=== PATIENT | female | born 1995 | race Caucasian/White ===

== ENCOUNTER 2017-05-03 22:41 | Emergency (ER) | payer SELFPAY ==
[~2017-05-03] VITALS: Ht 154.9 cm; Wt 57.2 kg
[~2017-05-03 22:41] MED LIST: CEPHALEXIN500 MG OR; CIPROFLOXACN500 MG PO; KEFLEX500 MG OR; LOESTRIN 24 PO; LORTAB 5/3255 MG PO; MACROBID100 MG PO; METRONIDAZOL500 MG PO; MOTRIN800 MG/TAB PO; NAPROSYN500 MG PO; NO HOME MEDS; NORETHIN ACE5 MG PO; OCELLA1 TAB PO; ONDANSETRON4 MG PO; ORTHO EVRA TD; RANITIDINE150 M1 PO; ULTRAM50 M1 PO
[2017-05-03 22:46] VITALS: BP 130/90
== END 2017-05-03 22:52 | disposition left against medical advice (07) | DRG 951 ==
LOC: ED 22:41 → LWOBS 22:52
DX: Z91.19 Patient's noncompliance with other medical treatment and regimen (principal)

== ENCOUNTER 2018-12-29 10:52 | Emergency (ER) | payer BC ==
[~2018-12-29] VITALS: Ht 154.9 cm; Wt 56.8 kg
[2018-12-29 11:44] LABS: HEMATOCRIT 41.3 % (37.0-47.0); HEMOGLOBIN 13.9 g/dl (12.0-16.0); IMMATURE GRANULOCYTES 0.5 % (0.0-5.0); MEAN CELL VOLUME 83.6 fL CALC (80.0-100.0); MEAN CORPUSCULAR HGB 28.1 pG CALC (26.0-32.0); MEAN CORPUSCULAR HGB CONC 33.7 g/L CALC (32.0-36.0); NEUT# 5.24 thou/uL (2.00-7.15); RED BLOOD COUNT 4.94 mill/uL (4.20-5.60); RED CELL DISTRI WIDTH 12.3 % (11.5-15.5)
[2018-12-29 11:47] LABS: URINE BILIRUBIN - DIPSTICK NEGATIVE (NEGATIVE); URINE BLOOD DIPSTICK TRACE-INTACT (NEGATIVE); URINE COLOR YELLOW; URINE GLUCOSE - DIPSTICK NEGATIVE (NEGATIVE); URINE KETONE NEGATIVE (NEGATIVE); URINE LEUK ESTERASE NEGATIVE (NEGATIVE); URINE NITRITE - DIPSTICK NEGATIVE (Negative); URINE PROTEIN - DIPSTICK NEGATIVE (NEG-TRACE); URINE SPECIFIC GRAVITY 1.025; URINE UROBILINOGEN - DIPSTICK 0.2 E.U./dL (0.2)
[2018-12-29 12:02] LABS: ALBUMIN 4.9 g/dL (3.2-5.0); ALKALINE PHOSPHATASE 83 u/l (38-126); ANION GAP 14 (6-22 (CALC)); BUN 10 mg/dL (7-17); BUN/CREATININE RATIO 17 (12-20 (CALC)); CARBON DIOXIDE 24 mmol/l (22-30); CHLORIDE 105 mmol/l (95-108); CREATININE 0.6 mg/dL (0.5-1.0); GFR > 60 ML/MIN (>=60 (CALC)); GFR FOR AFR.AMER. > 60 ML/MIN (>=60 (CALC)); LIPASE 75 u/l (23-300); POTASSIUM 4.3 mmol/l (3.5-5.1); SGOT/AST 20 u/l (14-36); SODIUM 139 mmol/l (137-146); TOTAL PROTEIN 8.1 g/dL (6.3-8.2)
[2018-12-29 12:03] LABS: BILIRUBIN, TOTAL 0.7 mg/dL (0.0-1.4)
[2018-12-29] MEDS ORDERED: ONDANSETRON4 MG PO (13:35)
[2018-12-29 13:54] VITALS: BP 144/85
== END 2018-12-29 14:00 | disposition home or self-care (01) | DRG 392 ==
LOC: ED 10:52
PROVIDERS: Family Medicine
DX: R10.31 Right lower quadrant pain (principal); R10.32 Left lower quadrant pain

== ENCOUNTER 2020-02-28 11:39 | Emergency (ER) | payer BC ==
[~2020-02-28] VITALS: Ht 154.9 cm; Wt 62.0 kg
[2020-02-28] MEDS ORDERED: ZITHROMAX250 MG PO (13:44)
[2020-02-28 13:59] VITALS: BP 117/71
--- NOTE | 2020-03-01 15:03 | NUR ---
Patient called for Covid results. Advised patient of negative results. Advised patient to continue Covid prevention. Advised patient to return to Ed with difficulty breathing or other urgent needs. Patient verbalized understand.
== END 2020-02-28 13:59 | disposition home or self-care (01) | DRG 153 ==
LOC: ED 11:39
DX: J06.9 Acute upper respiratory infection, unspecified (principal); Z20.828 Contact with and (suspected) exposure to other viral communicable diseases

== ENCOUNTER 2020-04-16 10:15 | Emergency (ER) | payer BC ==
[~2020-04-16] VITALS: Ht 154.9 cm; Wt 60.4 kg
[~2020-04-16 10:15] MED LIST changes: +ZITHROMAX250 MG PO
[2020-04-16 11:09] LABS: HEMATOCRIT 44.7 % (37.0-47.0); HEMOGLOBIN 14.4 g/dl (12.0-16.0); IMMATURE GRANULOCYTES 0.3 % (0.0-5.0); MEAN CELL VOLUME 86.1 fL CALC (80.0-100.0); MEAN CORPUSCULAR HGB 27.7 pG CALC (26.0-32.0); MEAN CORPUSCULAR HGB CONC 32.2 g/dL CAL (32.0-36.0); NEUT# 7.95 thou/uL (2.00-7.15); RED BLOOD COUNT 5.19 mill/uL (4.20-5.60); RED CELL DISTRI WIDTH 12.2 % (11.5-15.5)
[2020-04-16 11:11] LABS: URINE BILIRUBIN - DIPSTICK NEGATIVE (NEGATIVE); URINE BLOOD DIPSTICK TRACE-INTACT (NEGATIVE); URINE COLOR YELLOW; URINE GLUCOSE - DIPSTICK NEGATIVE (NEGATIVE); URINE KETONE NEGATIVE (NEGATIVE); URINE LEUK ESTERASE NEGATIVE (NEGATIVE); URINE NITRITE - DIPSTICK NEGATIVE (Negative); URINE PROTEIN - DIPSTICK NEGATIVE (NEG-TRACE); URINE SPECIFIC GRAVITY >=1.030; URINE UROBILINOGEN - DIPSTICK 0.2 E.U./dL (0.2)
[2020-04-16 11:43] LABS: ALBUMIN 5.2 g/dL (3.2-5.0); ALKALINE PHOSPHATASE 91 u/l (38-126); ANION GAP 18 (6-22 (CALC)); BILIRUBIN, TOTAL 0.7 mg/dL (0.0-1.4); BUN 10 mg/dL (7-17); BUN/CREATININE RATIO 17 (12-20 (CALC)); CARBON DIOXIDE 23 mmol/l (22-30); CHLORIDE 103 mmol/l (95-108); CREATININE 0.6 mg/dL (0.5-1.0); GFR > 60 ML/MIN (>=60 (CALC)); GFR FOR AFR.AMER. > 60 ML/MIN (>=60 (CALC)); LIPASE 75 u/l (23-300); POTASSIUM 4.3 mmol/l (3.5-5.1); SGOT/AST 27 u/l (14-36); SODIUM 140 mmol/l (137-146); TOTAL PROTEIN 8.9 g/dL (6.3-8.2)
[2020-04-16] MEDS ORDERED: ONDANSETRON4 MG PO (12:59)
[2020-04-16 13:10] VITALS: BP 128/88
== END 2020-04-16 13:10 | disposition home or self-care (01) | DRG 392 ==
LOC: ED 10:15
PROVIDERS: Family Medicine
DX: R10.32 Left lower quadrant pain (principal); R10.31 Right lower quadrant pain
CPT/HCPCS: Q9967

== ENCOUNTER 2020-06-07 22:19 | Emergency (ER) | payer SELFPAY ==
[~2020-06-07] VITALS: Ht 154.9 cm; Wt 59.1 kg
[2020-06-07 23:04] LABS: URINE BILIRUBIN - DIPSTICK NEGATIVE (NEGATIVE); URINE BLOOD DIPSTICK TRACE-INTACT (NEGATIVE); URINE COLOR YELLOW; URINE GLUCOSE - DIPSTICK NEGATIVE (NEGATIVE); URINE KETONE NEGATIVE (NEGATIVE); URINE LEUK ESTERASE NEGATIVE (NEGATIVE); URINE NITRITE - DIPSTICK NEGATIVE (Negative); URINE PROTEIN - DIPSTICK NEGATIVE (NEG-TRACE); URINE UROBILINOGEN - DIPSTICK 0.2 E.U./dL (0.2)
[2020-06-07 23:21] LABS: HEMATOCRIT 42.3 % (37.0-47.0); HEMOGLOBIN 13.9 g/dl (12.0-16.0); IMMATURE GRANULOCYTES 0.2 % (0.0-5.0); MEAN CELL VOLUME 83.9 fL CALC (80.0-100.0); MEAN CORPUSCULAR HGB 27.6 pG CALC (26.0-32.0); MEAN CORPUSCULAR HGB CONC 32.9 g/dL CAL (32.0-36.0); NEUT# 7.45 thou/uL (2.00-7.15); RED BLOOD COUNT 5.04 mill/uL (4.20-5.60); RED CELL DISTRI WIDTH 12.2 % (11.5-15.5)
[2020-06-08 00:39] LABS: ALKALINE PHOSPHATASE 85 u/l (38-126); ANION GAP 18 (6-22 (CALC)); BILIRUBIN, TOTAL 0.6 mg/dL (0.0-1.4); BUN 10 mg/dL (7-17); BUN/CREATININE RATIO 13 (12-20 (CALC)); CARBON DIOXIDE 27 mmol/l (22-30); CHLORIDE 101 mmol/l (95-108); CREATININE 0.7 mg/dL (0.5-1.0); GFR > 60 ML/MIN (>=60 (CALC)); GFR FOR AFR.AMER. > 60 ML/MIN (>=60 (CALC)); POTASSIUM 3.5 mmol/l (3.5-5.1); SGOT/AST 29 u/l (14-36); SODIUM 142 mmol/l (137-146); TOTAL PROTEIN 8.7 g/dL (6.3-8.2)
[2020-06-08 01:12] VITALS: BP 111/72
[2020-06-08 01:48] LABS: MYOGLOBIN 19 ng/mL (0 - 62)
== END 2020-06-08 02:04 | disposition home or self-care (01) | DRG 312 ==
LOC: ED 22:19
PROVIDERS: Family Medicine
DX: R55 Syncope and collapse (principal)

== ENCOUNTER 2021-08-10 10:55 | Emergency (ER) | payer SELFPAY ==
[2021-08-10] VITALS (10 sets, daily range): BP systolic 112–143; BP diastolic 70–92
[~2021-08-10] VITALS: Ht 154.9 cm; Wt 65.0 kg
[2021-08-10 12:14] LABS: HEMATOCRIT 42.6 % (37.0-47.0); HEMOGLOBIN 14.1 g/dl (12.0-16.0); IMMATURE GRANULOCYTES 0.2 % (0.0-5.0); MEAN CELL VOLUME 86.1 fL CALC (80.0-100.0); MEAN CORPUSCULAR HGB 28.5 pG CALC (26.0-32.0); MEAN CORPUSCULAR HGB CONC 33.1 g/dL CAL (32.0-36.0); NEUT# 7.01 thou/uL (2.00-7.15); RED BLOOD COUNT 4.95 mill/uL (4.20-5.60); RED CELL DISTRI WIDTH 12.4 % (11.5-15.5)
[2021-08-10 12:21] LABS: ALBUMIN 4.5 g/dL (3.2-5.0); ALKALINE PHOSPHATASE 82 u/l (38-126); AMYLASE 87 u/l (30-110); ANION GAP 13 (6-22 (CALC)); BILIRUBIN, TOTAL 0.4 mg/dL (0.0-1.4); BUN 11 mg/dL (7-17); BUN/CREATININE RATIO 17 (12-20 (CALC)); CARBON DIOXIDE 24 mmol/l (22-30); CHLORIDE 105 mmol/l (95-108); CREATININE 0.6 mg/dL (0.5-1.0); GFR > 60 ML/MIN (>=60 (CALC)); GFR FOR AFR.AMER. > 60 ML/MIN (>=60 (CALC)); LIPASE 105 u/l (23-300); SGOT/AST 21 u/l (14-36); SODIUM 138 mmol/l (137-146); TOTAL PROTEIN 7.5 g/dL (6.3-8.2)
[2021-08-10 12:32] LABS: POTASSIUM 4.4 mmol/l (3.5-5.1)
[2021-08-10 14:14] LABS: URINE BILIRUBIN - DIPSTICK NEGATIVE (NEGATIVE); URINE BLOOD DIPSTICK SMALL (NEGATIVE); URINE COLOR YELLOW; URINE GLUCOSE - DIPSTICK NEGATIVE (NEGATIVE); URINE KETONE NEGATIVE (NEGATIVE); URINE LEUK ESTERASE NEGATIVE (NEGATIVE); URINE NITRITE - DIPSTICK NEGATIVE (Negative); URINE PH 5.5 (4.5-8.0); URINE PROTEIN - DIPSTICK NEGATIVE (NEG-TRACE); URINE SPECIFIC GRAVITY >=1.030; URINE UROBILINOGEN - DIPSTICK 0.2 E.U./dL (0.2)
[2021-08-10] MEDS ORDERED: ULTRAM50 MG PO (14:36)
[2021-08-10] MEDS ORDERED: KEFLEX500 MG PO (14:36)
== END 2021-08-10 14:55 | disposition home or self-care (01) | DRG 552 ==
LOC: ED 10:55
DX: M54.50 Low back pain, unspecified (principal); R31.29 Other microscopic hematuria; Z87.19 Personal history of other diseases of the digestive system; Z87.442 Personal history of urinary calculi

== ENCOUNTER 2021-12-05 12:38 | Emergency (ER) | payer SELFPAY ==
[2021-12-05] VITALS (10 sets, daily range): BP systolic 90–142; BP diastolic 55–85
[~2021-12-05] VITALS: Ht 154.9 cm; Wt 60.9 kg
[~2021-12-05 12:38] MED LIST changes: +KEFLEX500 MG PO; +ULTRAM50 MG PO
[2021-12-05 13:10] LABS: URINE BILIRUBIN - DIPSTICK NEGATIVE (NEGATIVE); URINE BLOOD DIPSTICK TRACE-INTACT (NEGATIVE); URINE COLOR YELLOW; URINE GLUCOSE - DIPSTICK NEGATIVE (NEGATIVE); URINE KETONE NEGATIVE (NEGATIVE); URINE LEUK ESTERASE NEGATIVE (NEGATIVE); URINE PH 6.5 (4.5-8.0); URINE PROTEIN - DIPSTICK NEGATIVE (NEG-TRACE); URINE UROBILINOGEN - DIPSTICK 0.2 E.U./dL (0.2)
[2021-12-05 13:13] LABS: URINE NITRITE - DIPSTICK NEGATIVE (Negative)
[2021-12-05 14:08] LABS: HEMATOCRIT 41.1 % (37.0-47.0); HEMOGLOBIN 13.7 g/dl (12.0-16.0); IMMATURE GRANULOCYTES 0.1 % (0.0-5.0); MEAN CORPUSCULAR HGB 28.7 pG CALC (26.0-32.0); MEAN CORPUSCULAR HGB CONC 33.3 g/dL CAL (32.0-36.0); NEUT# 3.92 thou/uL (2.00-7.15); RED BLOOD COUNT 4.78 mill/uL (4.20-5.60); RED CELL DISTRI WIDTH 12.2 % (11.5-15.5)
[2021-12-05 14:19] LABS: ALBUMIN 4.6 g/dL (3.2-5.0); ALKALINE PHOSPHATASE 74 u/l (38-126); ANION GAP 12 (6-22 (CALC)); BUN 8 mg/dL (7-17); BUN/CREATININE RATIO 13 (12-20 (CALC)); CARBON DIOXIDE 26 mmol/l (22-30); CHLORIDE 104 mmol/l (95-108); CREATININE 0.7 mg/dL (0.5-1.0); GFR FOR AFR.AMER. > 60 ML/MIN (>=60 (CALC)); GFR OTHER RACES > 60 ML/MIN (>=60 (CALC)); LIPASE 63 u/l (23-300); POTASSIUM 3.9 mmol/l (3.5-5.1); SGOT/AST 24 u/l (14-36); SODIUM 138 mmol/l (137-146); TOTAL PROTEIN 7.8 g/dL (6.3-8.2)
[2021-12-05 14:22] LABS: BILIRUBIN, TOTAL 0.6 mg/dL (0.0-1.4)
[2021-12-05] MEDS ORDERED: TRAMADOL HCL50 MG PO (16:59)
== END 2021-12-05 17:39 | disposition home or self-care (01) | DRG 761 ==
LOC: ED 12:38
PROVIDERS: Nurse Practitioner
DX: N83.201 Unspecified ovarian cyst, right side (principal); Z87.442 Personal history of urinary calculi
CPT/HCPCS: Q9967

== ENCOUNTER 2022-03-07 07:47 | Emergency (ER) | payer SELFPAY ==
[~2022-03-07] VITALS: Ht 154.9 cm; Wt 75.0 kg
[2022-03-07] VITALS (9 sets, daily range): BP systolic 110–153; BP diastolic 67–96
[~2022-03-07 07:47] MED LIST changes: +TRAMADOL HCL50 MG PO
[2022-03-07 08:23] LABS: HEMATOCRIT 41.8 % (37.0-47.0); IMMATURE GRANULOCYTES 0.1 % (0.0-5.0); MEAN CELL VOLUME 84.8 fL CALC (80.0-100.0); MEAN CORPUSCULAR HGB 28.4 pG CALC (26.0-32.0); MEAN CORPUSCULAR HGB CONC 33.5 g/dL CAL (32.0-36.0); NEUT# 3.93 thou/uL (2.00-7.15); RED BLOOD COUNT 4.93 mill/uL (4.20-5.60); RED CELL DISTRI WIDTH 12.3 % (11.5-15.5)
[2022-03-07 08:30] LABS: ALBUMIN 4.6 g/dL (3.2-5.0); ALKALINE PHOSPHATASE 68 u/l (38-126); ANION GAP 15 (6-22 (CALC)); BUN 9 mg/dL (7-17); BUN/CREATININE RATIO 14 (12-20 (CALC)); CARBON DIOXIDE 21 mmol/l (22-30); CHLORIDE 105 mmol/l (95-108); CREATININE 0.6 mg/dL (0.5-1.0); GFR FOR AFR.AMER. > 60 ML/MIN (>=60 (CALC)); GFR OTHER RACES > 60 ML/MIN (>=60 (CALC)); POTASSIUM 3.8 mmol/l (3.5-5.1); SGOT/AST 32 u/l (14-36); SODIUM 138 mmol/l (137-146); TOTAL PROTEIN 7.8 g/dL (6.3-8.2)
[2022-03-07 08:38] LABS: BILIRUBIN, TOTAL 0.9 mg/dL (0.0-1.4)
[2022-03-07] MEDS ORDERED: MOTRIN800 MG PO (09:39)
[2022-03-07] MEDS ORDERED: ZOFRAN4 MG/TAB PO (09:39)
== END 2022-03-07 09:51 | disposition home or self-care (01) | DRG 103 ==
LOC: ED 07:47
PROVIDERS: Emergency Medicine
DX: G43.909 Migraine, unspecified, not intractable, without status migrainosus (principal); R00.0 Tachycardia, unspecified

== ENCOUNTER 2023-01-24 08:22 | Emergency (ER) | payer SELFPAY ==
[~2023-01-24] VITALS: Ht 154.9 cm; Wt 66.6 kg
[~2023-01-24 08:22] MED LIST changes: +MOTRIN800 MG PO; +ZOFRAN4 MG/TAB PO
[2023-01-24 08:43] VITALS: BP 122/80
[2023-01-24 09:00] VITALS: BP 116/86
[2023-01-24 09:04] LABS: BASO% 0.3 % (0-3); EOS% 0.8 % (0-8); HEMATOCRIT 43.1 % (37.0-47.0); HEMOGLOBIN 14.5 g/dl (12.0-16.0); IMMATURE GRANULOCYTES 0.1 % (0.0-5.0); LYMPH% 28.1 % (15-41); MEAN CELL VOLUME 85.9 fL CALC (80.0-100.0); MEAN CORPUSCULAR HGB 28.9 pG CALC (26.0-32.0); MEAN CORPUSCULAR HGB CONC 33.6 g/dL CAL (32.0-36.0); MONO% 7.1 % (2-13); NEUT# 5.01 thou/uL (2.00-7.15); NEUT% 63.6 % (42-76); RED BLOOD COUNT 5.02 mill/uL (4.20-5.60)
[2023-01-24 09:07] LABS: URINE BLOOD DIPSTICK Trace-intact (NEGATIVE); URINE GLUCOSE - DIPSTICK Negative (NEGATIVE); URINE KETONE Trace mg/dL (NEGATIVE); URINE LEUK ESTERASE Negative (NEGATIVE); URINE NITRITE - DIPSTICK Negative (Negative); URINE PROTEIN - DIPSTICK 30 mg/dL (NEG-TRACE); URINE SPECIFIC GRAVITY 1.025; URINE UROBILINOGEN - DIPSTICK 0.2 E.U./dL (0.2)
[2023-01-24 09:09] LABS: URINE COLOR Yellow
[2023-01-24 09:11] LABS: URINE BACTERIA MANY hpf; URINE MUCUS MODERATE hpf (NONE-FEW); URINE RBC 0-2 RBC/hpf (0-5); URINE SQUAMOUS EPITHELIAL CELL MODERATE EPI/hpf (0-FEW); URINE WBC 0-2 WBC/hpf (0-5)
[2023-01-24 09:30] VITALS: BP 108/72
[2023-01-24 09:41] LABS: ALBUMIN 4.7 g/dL (3.2-5.0); ALKALINE PHOSPHATASE 75 u/l (38-126); ANION GAP 14 (6-22 (CALC)); BUN 13 mg/dL (7-17); BUN/CREATININE RATIO 18 (12-20 (CALC)); CARBON DIOXIDE 21 mmol/l (22-30); CHLORIDE 105 mmol/l (95-108); CREATININE 0.7 mg/dL (0.5-1.0); GFR FOR AFR.AMER. > 60 ML/MIN (>=60 (CALC)); GFR OTHER RACES > 60 ML/MIN (>=60 (CALC)); LIPASE 56 u/l (23-300); POTASSIUM 3.7 mmol/l (3.5-5.1); SGOT/AST 30 u/l (14-36); SODIUM 137 mmol/l (137-146); TOTAL PROTEIN 8.1 g/dL (6.3-8.2)
[2023-01-24 09:57] LABS: BETA-HCG, QUANT(RESULT NUMBER) <2 mIU/mL
[2023-01-24 10:00] VITALS: BP 102/62
[2023-01-24] MEDS ORDERED: ONDANSETRON ODT8 MG PO (11:03)
[2023-01-24 11:20] VITALS: BP 100/73
[2023-01-24 11:22] VITALS: BP 100/73
== END 2023-01-24 11:30 | disposition home or self-care (01) | DRG 392 ==
LOC: ED 08:22
PROVIDERS: Emergency Medicine
DX: A08.4 Viral intestinal infection, unspecified (principal); Z87.19 Personal history of other diseases of the digestive system; Z87.442 Personal history of urinary calculi
CPT/HCPCS: Q9967

== ENCOUNTER 2023-01-25 15:16 | Observation (INO) | payer SELFPAY ==
[2023-01-25] VITALS (13 sets, daily range): BP systolic 108–143; BP diastolic 61–100
[~2023-01-25] VITALS: Ht 154.9 cm; Wt 58.0 kg
[~2023-01-25 15:16] MED LIST changes: +ONDANSETRON ODT8 MG PO
[2023-01-25 15:43] LABS: BASO% 0.2 % (0-3); HEMATOCRIT 42.8 % (37.0-47.0); HEMOGLOBIN 14.6 g/dl (12.0-16.0); IMMATURE GRANULOCYTES 0.2 % (0.0-5.0); LYMPH% 13.5 % (15-41); MEAN CELL VOLUME 84.8 fL CALC (80.0-100.0); MEAN CORPUSCULAR HGB 28.9 pG CALC (26.0-32.0); MEAN CORPUSCULAR HGB CONC 34.1 g/dL CAL (32.0-36.0); MONO% 4.5 % (2-13); NEUT# 10.15 thou/uL (2.00-7.15); NEUT% 81.6 % (42-76); RED BLOOD COUNT 5.05 mill/uL (4.20-5.60)
[2023-01-25 15:55] LABS: ALBUMIN 4.9 g/dL (3.2-5.0); ALKALINE PHOSPHATASE 72 u/l (38-126); ANION GAP 18 (6-22 (CALC)); BILIRUBIN, TOTAL 0.8 mg/dL (0.02-1.3); BUN 8 mg/dL (7-17); BUN/CREATININE RATIO 12 (12-20 (CALC)); CARBON DIOXIDE 22 mmol/l (22-30); CHLORIDE 103 mmol/l (95-108); CREATININE 0.7 mg/dL (0.5-1.0); GFR FOR AFR.AMER. > 60 ML/MIN (>=60 (CALC)); GFR OTHER RACES > 60 ML/MIN (>=60 (CALC)); POTASSIUM 3.6 mmol/l (3.5-5.1); SGOT/AST 33 u/l (14-36); SODIUM 140 mmol/l (137-146); TOTAL PROTEIN 8.6 g/dL (6.3-8.2)
--- NOTE | 2023-01-25 15:56 | NUR ---
PT WITH HOB ELEVATED, INTERNAL COMMUNICATIONS MANAGER SHOWS SINUS TACH, IVF INFUSING # 20 LEFT AC, SITE WITHOUT REDNESS/SWELLING. AIRWAY PATENT, RESP EVEN AND NON LABORED.
--- NOTE | 2023-01-25 18:33 | NUR ---
PT STATES " FEELING BETTER" SPOUSE AT BEDSIDE. NO ACUTE DISTRESS NOTED.
--- NOTE | 2023-01-25 22:28 | NUR ---
PATIENT ADMITTED FROM ER [facility] VIA WHEELCHAIR WITH ER STAFF IN ATTENDANCE. PATIENT IS ABLE TO TRANSFER TO THE BED ON HER OWN WITH STEADY GAIT. PATIENT IS AWAKE ALERT AND ORIENTEDX3. ADMITTED FOR CHOLECYSTITIS. PATIENT IV SITE TO LAC INTACT WITH GOOD BLOOD RETURN. IVF NS HUNG AND INFUSING ORDERED AT 125CC/HR. PATIENT IS NPO FOR POSSIBLE OR IN AM. PATIENT STATES THAT HE PAIN LEVEL AT THIS TIME IS 3 AFTER RECIEVING MORPHINE IN TH ER. NO NAUSEA AT THIS TIME. PATIENT STATES THAT HE LAST BM WAS THIS MORNING AND IT WAS WATERY STOOL. DENIES ANY DIFFICULTY WITH URINATION. LUNGS ARE CLEAR. ABD IS SOFT WITH ACTIVE BS. NO PERIPHERAL EDEMA AND PULSES ARE PALPABLE. PATIENT ORIENTED TO ROOM AND SURROUNDINGS. INSTRUCTED ON USE OF NURSE CALL LIGHT AND TV REMOTE. INSTRUCTED NPO FOR POSSIBLE OR IN AM. SAFETY PRECAUTIONS REINFORCED. CALL LIGHT IN REACH. WILL CONT TO MONITOR.
[2023-01-26] VITALS (11 sets, daily range): BP systolic 100–148; BP diastolic 42–78
--- NOTE | 2023-01-26 02:24 | NUR ---
PATIENT UP TO THE BR TO VOID. PATIENT DID TAKE PRE-OP SHOWER USING ANTISEPTIC SCRUB. RESTING IN BED AT THIS TIME. IVF PATENT AND INFUSING VIA LAC SITE AT 125CC/HR. ZOSYN HUNG ORDERED AND TORADOL GIVEN SCHEDULED. REMAINS NPO FOR POSS OR ION THE MORNING. CALL LIGHT IN REACH. WILL CONT TO MONITOR.
--- NOTE | 2023-01-26 03:52 | NUR ---
PATIENT RESTING IN BED-C/O SEVERE ABD PAIN 9/10 ON PAIN SCALE. MEDICATED WITH DILAUDID 1MG IVP ORDERED. MREMAINS NPO FOR POSS SURGERY THIS MORNING. IVF NS PATENT AND INFUSING VIA LAC SITE AT 125CC/HR. CALL LIGHTIN REACH. WILL CONT TO MONITOR.
--- NOTE | 2023-01-26 06:30 | NUR ---
PATIENT WITH GOOD RELIEF FROM DILAUDID GIVEN EARLIER. MIN ASSIST TO THE BR TO VOID QS CLEAR YELLOW URINE. MIN ASSIST BACK TO THE BED. IVF PATENT AND INFUSING AT 125CC/HR. ZOSYN INFUSING ORDERED. CONSENT FOR POSSIBLE OR SIGNED. REMAINS NPO AT THIS TIME. CALL LIGHT IN REACH. WILL CONT TO MONITOR.
--- NOTE | 2023-01-26 08:00 | NUR ---
PT IN BED WITH HOB UP, PT IS ALERT AND ORIENTED X 3. PT C/O PAIN AT 2/10 ON PAIN SCALE AT THIS TIME. PT HAS IV SITE # 20 TO LAC CLEAN AND INTACT WITH NS @ 125 ML/HR INFUSING. LUNGS CLEAR THROUGHOUT. BS HYPOACTIVE, UPPER ABD TENDER TO TOUCH. PT AMBULATES TO BATHROOM FOR TOILETING NEEDS. PT NPO SINCE MIDNIGHT FOR POSSIBLE LAP JESSICA TODAY. PT HAS CALL LIGHT WITHIN REACH AND ALL SAFETY MEASURES IN PLACE.
--- NOTE | 2023-01-26 09:05 | NUR ---
PT C/O NAUSEA ABD ABD PAIN AT 8/10 ON PAIN SCALE. PT MEDICATED WITH PRN MEDICATIONS. PT HAS CALL LIGHT WITHIN REACH AND ALL SAFETY MEASURES IN PLACE.
--- NOTE | 2023-01-26 09:30 | NUR ---
PT BEING TRANSPORTED TO OR FOR LAP JESSICA, CONSENTS SIGNED. FAMILY MEMBER IN ROOM.
[2023-01-26] MEDS ORDERED: PERCOCET 5/325M1 TAB PO (10:57)
[2023-01-26] MEDS ORDERED: ONDANSETRON4 MG PO (10:58)
--- NOTE | 2023-01-26 12:05 | NUR ---
PT IN OR.
--- NOTE | 2023-01-26 12:25 | NUR ---
PT BACK TO MED SURG FROM OR. PT IS GROGGY BUT ORIENTED X3, PT C/O PAIN AT 4/10 ON PAIN SCALE, SCHEDULED TORADOL GIVEN ORDERED. PT ABD SOFT WITH 4 INCISION SITE CLEAN WITH DERMABOND. SCD'S APPLIED TO BLE. PT HAS LR INFUSING @ 100 ML/HR. PT HAS CALL LIGHT WITHIN REACH AND ALL SAFETY MEASURES IN PLACE AT THIS TIME.
--- NOTE | 2023-01-26 12:28 | NUR ---
PT VSS AND OR NURSE REPORTS PT HAD 300 ML URINE OUT IN OR.
--- NOTE | 2023-01-26 17:24 | NUR ---
PT UP TO BATHROOM AND AMBULATING UP AND DOWN CH. PT HAS MODERATE AMOUNT OF PAIN AT 4/10 ON PAIN SCALE. PT HAS BEEN DRINKING AND EATING WELL. PT HAS CALL LIGHT WITHIN REACH.
--- NOTE | 2023-01-26 17:45 | NUR ---
Discharge instructions given. Patient verbalizes understanding of same. Discharged in stable condition via Wheelchair to Home with staff. All belongings sent with pt.
[2023-01-27] MEDS ORDERED: PERCOCET 10/31 COMBO PO (05:23)
== END 2023-01-26 17:44 | disposition home or self-care (01) | DRG 419 ==
LOC: ED 15:16 → ED-I 18:55 → ED 19:06 → MS2 19:07
PROVIDERS: Family Medicine; ADMIT Surgery; ATTEND Surgery
PROC: 0FT44ZZ Resection of Gallbladder, Percutaneous Endoscopic Approach (ICD-10-PCS; principal; 2023-01-26)
DX: K81.0 Acute cholecystitis (principal); K81.1 Chronic cholecystitis; F41.9 Anxiety disorder, unspecified; F32.A Depression, unspecified; Z87.442 Personal history of urinary calculi; Z87.19 Personal history of other diseases of the digestive system; Z20.822 Contact with and (suspected) exposure to COVID-19
CPT/HCPCS: G0378; J0131; J1100; J2710; Q9967

== ENCOUNTER 2023-01-27 02:13 | Emergency (ER) | payer SELFPAY ==
[~2023-01-27] VITALS: Ht 154.9 cm; Wt 57.0 kg
[~2023-01-27 02:13] MED LIST changes: +PERCOCET 5/325M1 TAB PO
[2023-01-27 04:57] LABS: ALBUMIN 4.5 g/dL (3.2-5.0); ALKALINE PHOSPHATASE 67 u/l (38-126); AMYLASE 55 u/l (30-110); ANION GAP 16 (6-22 (CALC)); BILIRUBIN, TOTAL 0.8 mg/dL (0.02-1.3); BUN 8 mg/dL (7-17); BUN/CREATININE RATIO 10 (12-20 (CALC)); CARBON DIOXIDE 25 mmol/l (22-30); CHLORIDE 101 mmol/l (95-108); CREATININE 0.8 mg/dL (0.5-1.0); GFR FOR AFR.AMER. > 60 ML/MIN (>=60 (CALC)); GFR OTHER RACES > 60 ML/MIN (>=60 (CALC)); LIPASE 41 u/l (23-300); POTASSIUM 4.2 mmol/l (3.5-5.1); SODIUM 137 mmol/l (137-146); TOTAL PROTEIN 7.6 g/dL (6.3-8.2)
[2023-01-27 04:58] LABS: BASO% 0.1 % (0-3); HEMATOCRIT 38.9 % (37.0-47.0); HEMOGLOBIN 13.3 g/dl (12.0-16.0); IMMATURE GRANULOCYTES 0.8 % (0.0-5.0); LYMPH% 9.9 % (15-41); MEAN CELL VOLUME 84.7 fL CALC (80.0-100.0); MEAN CORPUSCULAR HGB CONC 34.2 g/dL CAL (32.0-36.0); MONO% 7.6 % (2-13); NEUT# 10.78 thou/uL (2.00-7.15); NEUT% 81.6 % (42-76); RED BLOOD COUNT 4.59 mill/uL (4.20-5.60)
[2023-01-27 05:05] LABS: SGOT/AST 58 u/l (14-36)
[2023-01-27 05:10] LABS: URINE BILIRUBIN - DIPSTICK Negative (NEGATIVE); URINE BLOOD DIPSTICK Large (NEGATIVE); URINE COLOR Pink; URINE GLUCOSE - DIPSTICK Negative (NEGATIVE); URINE KETONE 15 mg/dL (NEGATIVE); URINE LEUK ESTERASE Trace (NEGATIVE); URINE NITRITE - DIPSTICK Negative (Negative); URINE PH 7.5 (4.5-8.0); URINE PROTEIN - DIPSTICK Negative (NEG-TRACE); URINE SPECIFIC GRAVITY 1.015; URINE UROBILINOGEN - DIPSTICK 0.2 E.U./dL (0.2)
[2023-01-27 05:12] LABS: URINE EPITHELIAL CELLS FEW EPI/hpf (0-FEW); URINE RBC >100 RBC/hpf (0-5)
[2023-01-27 05:13] LABS: URINE BACTERIA FEW hpf
[2023-01-27] MEDS ORDERED: PERCOCET 10/31 COMBO PO (05:23)
[2023-01-27 05:58] VITALS: BP 128/78
== END 2023-01-27 05:58 | disposition home or self-care (01) | DRG 948 ==
LOC: ED 02:13
PROVIDERS: Emergency Medicine
DX: G89.18 Other acute postprocedural pain (principal); R10.33 Periumbilical pain; F32.A Depression, unspecified; F41.9 Anxiety disorder, unspecified; Z87.442 Personal history of urinary calculi; Z90.49 Acquired absence of other specified parts of digestive tract
CPT/HCPCS: Q9967

== ENCOUNTER 2023-01-28 18:19 | Emergency (ER) | payer SELFPAY ==
[~2023-01-28] VITALS: Ht 154.9 cm; Wt 57.0 kg
[~2023-01-28 18:19] MED LIST changes: +PERCOCET 10/31 COMBO PO
[2023-01-28 19:18] VITALS: BP 146/89
[2023-01-28 19:30] VITALS: BP 117/83
[2023-01-28 19:45] VITALS: BP 118/79
[2023-01-28 19:48] LABS: BASO% 0.2 % (0-3); EOS% 0.2 % (0-8); HEMATOCRIT 39.2 % (37.0-47.0); HEMOGLOBIN 13.3 g/dl (12.0-16.0); IMMATURE GRANULOCYTES 0.2 % (0.0-5.0); LYMPH% 12.9 % (15-41); MEAN CELL VOLUME 84.7 fL CALC (80.0-100.0); MEAN CORPUSCULAR HGB 28.7 pG CALC (26.0-32.0); MEAN CORPUSCULAR HGB CONC 33.9 g/dL CAL (32.0-36.0); MONO% 6.8 % (2-13); NEUT# 10.34 thou/uL (2.00-7.15); NEUT% 79.7 % (42-76); RED BLOOD COUNT 4.63 mill/uL (4.20-5.60); RED CELL DISTRI WIDTH 11.9 % (11.5-15.5)
[2023-01-28 19:53] LABS: URINE BLOOD DIPSTICK Moderate (NEGATIVE); URINE GLUCOSE - DIPSTICK Negative (NEGATIVE); URINE KETONE >=160 mg/dL (NEGATIVE); URINE LEUK ESTERASE Negative (NEGATIVE); URINE NITRITE - DIPSTICK Negative (Negative); URINE PROTEIN - DIPSTICK Negative (NEG-TRACE); URINE SPECIFIC GRAVITY 1.025; URINE UROBILINOGEN - DIPSTICK 0.2 E.U./dL (0.2)
[2023-01-28 19:54] LABS: URINE COLOR Yellow
[2023-01-28 20:01] VITALS: BP 148/94
[2023-01-28 20:04] LABS: ALBUMIN 4.4 g/dL (3.2-5.0); ANION GAP 13 (6-22 (CALC)); BILIRUBIN, TOTAL 1.1 mg/dL (0.02-1.3); BUN 9 mg/dL (7-17); BUN/CREATININE RATIO 12 (12-20 (CALC)); CARBON DIOXIDE 27 mmol/l (22-30); CHLORIDE 100 mmol/l (95-108); CREATININE 0.8 mg/dL (0.5-1.0); GFR FOR AFR.AMER. > 60 ML/MIN (>=60 (CALC)); GFR OTHER RACES > 60 ML/MIN (>=60 (CALC)); LIPASE 40 u/l (23-300); POTASSIUM 3.6 mmol/l (3.5-5.1); SODIUM 136 mmol/l (137-146); TOTAL PROTEIN 7.6 g/dL (6.3-8.2)
[2023-01-28 20:05] LABS: URINE SQUAMOUS EPITHELIAL CELL FEW EPI/hpf (0-FEW); URINE WBC 0-2 WBC/hpf (0-5)
[2023-01-28 20:06] LABS: ALKALINE PHOSPHATASE 116 u/l (38-126); SGOT/AST 500 u/l (14-36)
[2023-01-28 20:15] VITALS: BP 137/89
[2023-01-28 23:43] VITALS: BP 133/84
== END 2023-01-28 23:43 | disposition home or self-care (01) | DRG 392 ==
LOC: ED 18:19
PROVIDERS: Family Medicine
DX: R10.31 Right lower quadrant pain (principal); F41.9 Anxiety disorder, unspecified; F32.A Depression, unspecified; Z90.49 Acquired absence of other specified parts of digestive tract; Z87.442 Personal history of urinary calculi; Z20.822 Contact with and (suspected) exposure to COVID-19
CPT/HCPCS: Q9967

== ENCOUNTER 2023-02-03 12:11 | Emergency (ER) | payer SELFPAY ==
[~2023-02-03] VITALS: Ht 154.9 cm; Wt 57.6 kg
[2023-02-03 12:50] LABS: BASO% 0.3 % (0-3); EOS% 1.3 % (0-8); HEMATOCRIT 41.6 % (37.0-47.0); IMMATURE GRANULOCYTES 0.1 % (0.0-5.0); LYMPH% 23.8 % (15-41); MEAN CELL VOLUME 85.6 fL CALC (80.0-100.0); MEAN CORPUSCULAR HGB 28.8 pG CALC (26.0-32.0); MEAN CORPUSCULAR HGB CONC 33.7 g/dL CAL (32.0-36.0); MONO% 8.7 % (2-13); NEUT# 6.92 thou/uL (2.00-7.15); NEUT% 65.8 % (42-76); RED BLOOD COUNT 4.86 mill/uL (4.20-5.60); RED CELL DISTRI WIDTH 12.1 % (11.5-15.5)
[2023-02-03 13:11] LABS: ALBUMIN 4.6 g/dL (3.2-5.0); ALKALINE PHOSPHATASE 131 u/l (38-126); ANION GAP 16 (6-22 (CALC)); BUN 13 mg/dL (7-17); BUN/CREATININE RATIO 20 (12-20 (CALC)); CARBON DIOXIDE 26 mmol/l (22-30); CHLORIDE 100 mmol/l (95-108); CREATININE 0.6 mg/dL (0.5-1.0); GFR FOR AFR.AMER. > 60 ML/MIN (>=60 (CALC)); GFR OTHER RACES > 60 ML/MIN (>=60 (CALC)); POTASSIUM 3.7 mmol/l (3.5-5.1); SODIUM 138 mmol/l (137-146); TOTAL PROTEIN 8.5 g/dL (6.3-8.2)
[2023-02-03 13:34] LABS: BILIRUBIN, TOTAL 0.6 mg/dL (0.02-1.3); SGOT/AST 50 u/l (14-36)
[2023-02-03 14:40] LABS: URINE BILIRUBIN - DIPSTICK Negative (NEGATIVE); URINE BLOOD DIPSTICK Negative (NEGATIVE); URINE GLUCOSE - DIPSTICK Negative (NEGATIVE); URINE KETONE 15 mg/dL (NEGATIVE); URINE LEUK ESTERASE Negative (NEGATIVE); URINE NITRITE - DIPSTICK Negative (Negative); URINE PROTEIN - DIPSTICK Negative (NEG-TRACE); URINE UROBILINOGEN - DIPSTICK 0.2 E.U./dL (0.2)
[2023-02-03 14:41] LABS: URINE COLOR Yellow
[2023-02-03 18:05] VITALS: BP 105/70
== END 2023-02-03 18:09 | disposition home or self-care (01) | DRG 392 ==
LOC: ED 12:11
PROVIDERS: Family Medicine
DX: R10.9 Unspecified abdominal pain (principal); F32.A Depression, unspecified; F41.9 Anxiety disorder, unspecified; Z87.442 Personal history of urinary calculi; Z90.49 Acquired absence of other specified parts of digestive tract
CPT/HCPCS: A9537; Q9967

== ENCOUNTER 2023-02-06 12:30 | Emergency (ER) | payer SELFPAY ==
[~2023-02-06] VITALS: Ht 154.9 cm; Wt 57.6 kg
[2023-02-06] VITALS (7 sets, daily range): BP systolic 102–117; BP diastolic 58–77
[2023-02-06 13:01] LABS: BASO% 0.3 % (0-3); EOS% 0.8 % (0-8); HEMATOCRIT 41.7 % (37.0-47.0); HEMOGLOBIN 14.1 g/dl (12.0-16.0); IMMATURE GRANULOCYTES 0.1 % (0.0-5.0); LYMPH% 23.7 % (15-41); MEAN CELL VOLUME 85.6 fL CALC (80.0-100.0); MEAN CORPUSCULAR HGB CONC 33.8 g/dL CAL (32.0-36.0); MONO% 6.1 % (2-13); NEUT# 6.69 thou/uL (2.00-7.15); RED BLOOD COUNT 4.87 mill/uL (4.20-5.60); RED CELL DISTRI WIDTH 11.8 % (11.5-15.5)
[2023-02-06 13:19] LABS: ALBUMIN 4.7 g/dL (3.2-5.0); ALKALINE PHOSPHATASE 110 u/l (38-126); ANION GAP 15 (6-22 (CALC)); BILIRUBIN, TOTAL 0.7 mg/dL (0.02-1.3); BUN 11 mg/dL (7-17); BUN/CREATININE RATIO 15 (12-20 (CALC)); CARBON DIOXIDE 25 mmol/l (22-30); CHLORIDE 105 mmol/l (95-108); CREATININE 0.7 mg/dL (0.5-1.0); GFR FOR AFR.AMER. > 60 ML/MIN (>=60 (CALC)); GFR OTHER RACES > 60 ML/MIN (>=60 (CALC)); LIPASE 112 u/l (23-300); SGOT/AST 31 u/l (14-36); SODIUM 140 mmol/l (137-146); TOTAL PROTEIN 8.5 g/dL (6.3-8.2)
[2023-02-06 13:42] LABS: POTASSIUM 4.5 mmol/l (3.5-5.1)
== END 2023-02-06 14:10 | disposition home or self-care (01) | DRG 103 ==
LOC: ED 12:30
PROVIDERS: Family Medicine
DX: R51.9 Headache, unspecified (principal); F41.9 Anxiety disorder, unspecified; F32.A Depression, unspecified; Z90.49 Acquired absence of other specified parts of digestive tract; Z87.442 Personal history of urinary calculi; Z20.822 Contact with and (suspected) exposure to COVID-19

== ENCOUNTER 2023-11-30 07:31 | Emergency (ER) | payer BC ==
[~2023-11-30] VITALS: Ht 152.4 cm; Wt 61.0 kg
[~2023-11-30 07:31] MED LIST changes: +VOLTAREN - GENE75 MG PO
[2023-11-30] MEDS ORDERED: ONDANSETRON HCl 4 MG/2 ML SDV IV ONE (07:35)
[2023-11-30 07:37] VITALS: BP 129/90
[2023-11-30 08:00] VITALS: BP 128/68
[2023-11-30 08:03] LABS: BASO% 0.4 % (0-3); EOS% 2.1 % (0-8); HEMATOCRIT 44.7 % (37.0-47.0); LYMPH% 39.1 % (15-41); MEAN CELL VOLUME 83.6 fL CALC (80.0-100.0); MEAN CORPUSCULAR HGB CONC 33.6 g/dL CAL (32.0-36.0); MONO% 8.7 % (2-13); NEUT# 3.54 thou/uL (2.00-7.15); NEUT% 49.7 % (42-76); RED BLOOD COUNT 5.35 mill/uL (4.20-5.60); RED CELL DISTRI WIDTH 11.8 % (11.5-15.5)
[2023-11-30 08:13] LABS: ALBUMIN 4.8 g/dL (3.2-5.0); ALKALINE PHOSPHATASE 83 u/l (38-126); ANION GAP 9 (6-22 (CALC)); BUN 11 mg/dL (7-17); BUN/CREATININE RATIO 15 (12-20 (CALC)); CARBON DIOXIDE 23 mmol/l (22-30); CHLORIDE 111 mmol/l (95-108); CREATININE 0.8 mg/dL (0.5-1.0); ESTIMATED GFR 102 ML/MIN (>=90 (CALC)); LIPASE 80 u/l (23-300); POTASSIUM 3.7 mmol/l (3.5-5.1); SGOT/AST 31 u/l (14-36); SODIUM 139 mmol/l (137-146); TOTAL PROTEIN 8.6 g/dL (6.3-8.2)
[2023-11-30 08:14] LABS: BILIRUBIN, TOTAL 0.9 mg/dL (0.02-1.3)
[2023-11-30 08:29] LABS: URINE BLOOD DIPSTICK Small (NEGATIVE); URINE GLUCOSE - DIPSTICK Negative (NEGATIVE); URINE KETONE Trace mg/dL (NEGATIVE); URINE LEUK ESTERASE Negative (NEGATIVE); URINE NITRITE - DIPSTICK Negative (Negative); URINE PH 5.5 (4.5-8.0); URINE PROTEIN - DIPSTICK 30 mg/dL (NEG-TRACE); URINE SPECIFIC GRAVITY >=1.030; URINE UROBILINOGEN - DIPSTICK 0.2 E.U./dL (0.2)
[2023-11-30 08:30] VITALS: BP 106/67
[2023-11-30 08:30] LABS: URINE COLOR Yellow
[2023-11-30 08:31] LABS: URINE EPITHELIAL CELLS FEW EPI/hpf (0-FEW); URINE MUCUS MODERATE hpf (NONE-FEW)
[2023-11-30 09:00] VITALS: BP 94/55
[2023-11-30 09:01] VITALS: BP 94/55
[2023-11-30] MEDS ORDERED: OMNICEF300 MG PO (09:10)
== END 2023-11-30 09:26 | disposition home or self-care (01) | DRG 313 ==
LOC: ED 07:31
PROVIDERS: Family Medicine
DX: R07.9 Chest pain, unspecified (principal); R31.9 Hematuria, unspecified; F41.9 Anxiety disorder, unspecified; F32.A Depression, unspecified; Z87.442 Personal history of urinary calculi